=== PATIENT | female | born 1960 | race Caucasian/White ===

== ENCOUNTER 2017-06-09 15:12 | Emergency (ER) | payer OTHER, SELFPAY ==
[2017-06-09 15:22] VITALS: BMI 27.8
[2017-06-09] MEDS ORDERED: Sodium Chloride 0.9% 1,000 ML IV STA (15:24)
--- NOTE | 2017-06-09 15:38 | ED PDOC ---
Arrival/HPI - General Historian: Patient - History of Present Illness Time/Duration: 1 week Context: Home - General Time Seen by Provider: 06/09/17 15:13 - History of Present Illness Narrative History of Present Illness (Text): 06/09/17 15:26 This 57 yo female presents to this ED complaining of dizziness, MCGOWAN x 7 days. Patient stated symptom is intermittent. Dizziness is described as "room spinning". Patient admits mild sore throat, and sinuses congestion. Patient denies fever, trauma, diplopia, dysarthria, shortness of breath, chest pain, abdominal pain, n/v, weakness, paresthesias, or abnormal gait. (Malorie Ovalles) Past Medical History - Provider Review Nursing Documentation Reviewed: Yes - Endocrine/Metabolic Hx Diabetes Mellitus Type 1: Yes - Psychiatric Hx Depression: No Hx Emotional Abuse: No Hx Physical Abuse: No Hx Substance Use: No - Suicidal Assessment Feels Threatened In Home Enviroment: No Family/Social History - Physician Review Nursing Documentation Reviewed: Yes Family/Social History: No Known Family HX Hx Alcohol Use: No Hx Substance Use: No Hx Substance Use Treatment: No Allergies/Home Meds Allergies/Adverse Reactions: Allergies Penicillins Allergy (Verified 06/09/17 15:16) RASH Home Medications: Home Meds Medication Instructions Recorded Confirmed Metformin HCl [Fortamet] 500 mg PO DAILY 06/09/17 06/09/17 Review of Systems - Review of Systems Constitutional: Fatigue. absent: Weight Change, Fevers, Night Sweats Eyes: Normal. absent: Vision Changes, Photophobia, Eye Pain ENT: Sore Throat, Rhinorrhea, Sinus Congestion. absent: Hearing Changes, Tinnitus, TMJ Pain, Voice Changes, Epistaxis Respiratory: Normal. absent: SOB, Cough, Sputum, Wheezing Cardiovascular: Normal. absent: Chest Pain, Palpitations Gastrointestinal: Normal. absent: Abdominal Pain, Nausea, Vomiting Genitourinary Female: Normal. absent: Dysuria, Frequency, Hematuria Musculoskeletal: Normal. absent: Arthralgias, Back Pain, Neck Pain, Myalgias Skin: Normal. absent: Rash Neurological: Headache, Dizziness. absent: Focal Weakness, Gait Changes, Speech Changes, Facial Droop, Disequilibrium, Seizure Endocrine: Normal Hemo/Lymphatic: Normal Psychiatric: Normal Physical Exam Temperature: Afebrile Blood Pressure: Normal Pulse: Regular Respiratory Rate: Normal Appearance: Positive for: Well-Appearing, Non-Toxic, Comfortable Pain Distress: None Mental Status: Positive for: Alert and Oriented X 3 - Systems Exam Head: Present: Atraumatic, Normocephalic Pupils: Present: PERRL Extroacular Muscles: Present: EOMI Conjunctiva: Present: Normal Mouth: Present: Moist Mucous Membranes Neck: Present: Normal Range of Motion Respiratory/Chest: Present: Clear to Auscultation, Good Air Exchange. No: Respiratory Distress, Accessory Muscle Use Cardiovascular: Present: Regular Rate and Rhythm, Normal S1, S2. No: Murmurs Abdomen: Present: Normal Bowel Sounds. No: Tenderness, Distention, Peritoneal Signs Back: Present: Normal Inspection Upper Extremity: Present: Normal Inspection. No: Cyanosis, Edema Lower Extremity: Present: Normal Inspection. No: Edema Neurological: Present: GCS=15, CN II-XII Intact, Speech Normal, Motor Func Grossly Intact, Normal Sensory Function, Normal Cerebellar Funct, Gait Normal, Memory Normal Skin: Present: Warm, Dry, Normal Color. No: Rashes Psychiatric: Present: Alert, Oriented x 3, Normal Insight, Normal Concentration Vital Signs Temp Pulse Resp BP Pulse Ox 06/09/17 15:30 98.7 F 78 18 117/73 99 Medical Decision Making Re-evaluation Time: 17:45 Reassessment Condition: Re-examined, Improved - Lab Interpretations I have reviewed the lab results: Yes Interpretation: No clinic. lab abnormalty - EKG Interpretation Interpreted by ED Physician: Yes (NSR @ 77bpm. Normal interval.) Type: 12 lead EKG Comparison: No previous EKG avail. ED Course and Treatment: I was available for consultation during PA evaluation. The chart was reviewed by me, and I agree with disposition. The documented history was done by the physician cocktail server. The documented physical exam was done by the physician cocktail server. The documented procedures were done by the physician cocktail server. (Rob Darby) 06/09/17 17:44 Patient denies urinary symptoms, and she does not want to have urine test performed 06/09/17 17:45 Patient came c/o dizziness described as room spinning. Patient had a mild MCGOWAN. Patient had blood test, ct head, and medical treatment for vertigo, an MCGOWAN. Patient felt better with treatment, and she wishes to be discharge home. (Malorie Ovalles) - Lab Interpretations Lab Results: 06/09/17 16:03 06/09/17 16:03 Lab Results 06/09/17 16:03: Sodium 140, Potassium 4.1, Chloride 104, Carbon Dioxide 26, Anion Gap 14, BUN 21, Creatinine 0.7, Est GFR ( Amer) > 60, Est GFR (Non- Af Amer) > 60, Random Glucose 84, Calcium 9.3, Total Bilirubin 0.3, AST 23, ALT 29, Alkaline Phosphatase 72, Total Protein 7.2, Albumin 4.3, Globulin 2.9, Albumin/Globulin Ratio 1.5 06/09/17 16:03: WBC 5.6, RBC 4.40, Hgb 12.8, Hct 38.7, MCV 88.0, MCH 29.1, MCHC 33.1, RDW 13.5, Plt Count 213, MPV 12.0 H, Gran % 57.4, Lymph % (Auto) 33.9, Wells % (Auto) 6.3 H, Eos % (Auto) 2.0, Baso % (Auto) 0.4, Gran # 3.19, Lymph # 1.9, Wells # 0.4, Eos # 0.1, Baso # 0.02 - RAD Interpretation Narrative RAD Interpretations (Text): 06/09/17 17:38 ccession No. : [id number] Patient Name / ID : PRATIK YOUNG / [id number] Exam Date : 06/09/2017 16:35:26 ( Approved ) Study Comment : Sex / Age : F / 57Y Creator : Vinicius Maldonado MD Dictator : Vinicius Maldonado MD Operations And Maintenance Specialist : Data Analysis Assistant : Vinicius Maldonado MD Approver2 : Report Date : 06/09/2017 17:24:21 My Comment : PROCEDURE: CT HEAD WITHOUT CONTRAST. HISTORY: dizziness, MCGOWAN COMPARISON: None available. TECHNIQUE: Axial computed tomography images were obtained through the head/brain without intravenous contrast. Radiation dose: Total exam DLP = 774.23 mGy-cm. This CT exam was performed using one or more of the following dose reduction techniques: Automated exposure control, adjustment of the mA and/or kV according to patient size, and/or use of iterative reconstruction technique. FINDINGS: HEMORRHAGE: No intracranial hemorrhage. BRAIN: No mass effect or edema. No atrophy or chronic microvascular ischemic changes. VENTRICLES: Unremarkable. No hydrocephalus. CALVARIUM: Unremarkable. PARANASAL SINUSES: Unremarkable as visualized. No significant inflammatory changes. MASTOID AIR CELLS: Unremarkable as visualized. No inflammatory changes. OTHER FINDINGS: None. IMPRESSION: No acute intracranial abnormalities. No significant findings to account for the clinical presentation. (Malorie Ovalles) Radiology Orders: 06/09/17 15:27 HEAD W/O CONTRAST [CT] Stat - Medication Orders Current Medication Orders: Discontinued Medications Sodium Chloride (Sodium Chloride 0.9%) 1,000 mls @ 999 mls/hr IV .Q1H1M STA Stop: 06/09/17 16:24 Last Admin: 06/09/17 16:01 Dose: 999 mls/hr Meclizine HCl (Antivert) 50 mg PO STAT STA Stop: 06/09/17 15:25 Last Admin: 06/09/17 15:55 Dose: 50 mg Metoclopramide HCl (Reglan) 10 mg IVP STAT STA Stop: 06/09/17 15:25 Last Admin: 06/09/17 15:55 Dose: 10 mg Disposition/Present on Arrival - Present on Arrival Any Indicators Present on Arrival: No History of DVT/PE: No History of Uncontrolled Diabetes: No Urinary Catheter: No History Surgical Site Infection Following: None - Disposition Have Diagnosis and Disposition been Completed?: Yes Disposition Time: 17:48 Patient Plan: Discharge - Disposition Diagnosis: Benign paroxysmal positional vertigo, Headache Disposition: HOME/ ROUTINE Patient Problems: Current Active Problems Problem Status Onset Benign paroxysmal positional vertigo Acute Headache Acute Condition: GOOD Discharge Instructions (ExitCare): Benign Paroxysmal Positional Vertigo (ED), General Headache (ED) Additional Instructions: Call private doctor for follow up visit in 1-2 days. Also call ear nose and throat doctor for revaluation of vertigo, and sinus congestion. Return to emergency if symptoms worsen. Prescriptions: Meclizine [Meclizine*] 25 mg PO Q6 PRN #30 tab PRN Reason: Dizziness Referrals: PCP,BEBA [Primary Care Provider] - Follow up with primary Eugenio Hanley DO [Staff Provider] - Follow up with primary [facility] [Outside] - Follow up with primary [facility] [Outside] - Follow up with primary
[2017-06-09 15:42] VITALS: BP 117/73; PULSE 78; RESP 18; TEMP 98.7; O2SAT 99
[2017-06-09 16:20] LABS: BASO # 0.02 K/mm3 (0.0-2.0); BASO % 0.4 % (0.0-3.0); EOS # 0.1 (0.0-0.7); GRAN # 3.19 (1.4-6.5); GRAN % 57.4 % (50.0-68.0); HEMOGLOBIN 12.8 gm/dL (12.0-16.0); LYMPH # 1.9 (1.2-3.4); LYMPH % 33.9 % (22.0-35.0); MEAN CORPUSCULAR HEMOGLOBIN 29.1 pg (25.0-35.0); MEAN CORPUSCULAR HGB CONC 33.1 g/dl (31.0-37.0); MONO # 0.4 (0.1-0.6); MONO % 6.3 % (1.0-6.0); PLATELET COUNT 213 10^3/uL (120.0-450.0); RED CELL DISTRIBUTION WIDTH 13.5 % (11.5-14.5); WHITE BLOOD COUNT 5.6 10^3/ul (4.5-11.0)
[2017-06-09 16:49] LABS: ALB/GLOB RATIO 1.5 (1.1-1.8); ALBUMIN 4.3 g/dL (3.0-4.8); ALT/SGPT 29 U/L (7-56); AST/SGOT 23 U/L (15-39); BLOOD UREA NITROGEN 21 mg/dL (7-21); CALCIUM 9.3 mg/dL (8.4-10.5); GFR AFRICAN-AMERICAN > 60; GFR NON-AFRICAN AMERICAN > 60
--- NOTE | 2017-06-09 17:26 | CT ---
PROCEDURE: CT HEAD WITHOUT CONTRAST. HISTORY: dizziness, MCGOWAN COMPARISON: None available. TECHNIQUE: Axial computed tomography images were obtained through the head/brain without intravenous contrast. Radiation dose: Total exam DLP = 774.23 mGy-cm. This CT exam was performed using one or more of the following dose reduction techniques: Automated exposure control, adjustment of the mA and/or kV according to patient size, and/or use of iterative reconstruction technique. FINDINGS: HEMORRHAGE: No intracranial hemorrhage. BRAIN: No mass effect or edema. No atrophy or chronic microvascular ischemic changes. VENTRICLES: Unremarkable. No hydrocephalus. CALVARIUM: Unremarkable. PARANASAL SINUSES: Unremarkable as visualized. No significant inflammatory changes. MASTOID AIR CELLS: Unremarkable as visualized. No inflammatory changes. OTHER FINDINGS: None. IMPRESSION: No acute intracranial abnormalities. No significant findings to account for the clinical presentation.
--- NOTE | 2017-06-10 12:46 | CARD ---
APPROVED REPORT EKG Measurement Heart [id number] <Conclusion> Normal sinus rhythm Normal ECG
== END 2017-06-09 17:48 | disposition home or self-care (01) ==
LOC: ED 15:12
DX: H81.10 Benign paroxysmal vertigo, unspecified ear (principal); R51 Headache
CPT/HCPCS: 70450; 80053; 85025; 93005; 96374; 99283; J2765; J7040

== ENCOUNTER 2017-08-09 14:49 | Emergency (ER) | payer OTHER ==
[2017-08-09 14:49] VITALS: BMI 27.8
[2017-08-09 15:07] VITALS: TEMP 98.2; O2SAT 99
--- NOTE | 2017-08-09 15:22 | ED PDOC ---
Arrival/HPI - General Chief Complaint: Abnormal Skin Integrity Time Seen by Provider: 08/09/17 15:13 Historian: Patient - History of Present Illness Narrative History of Present Illness (Text): 08/09/17 15:28 57 yo F presents with a red itchy painless rash to the mid upper chest which started this AM. Denies fever, chills, CP, SOB, new medications, new food, change in creams/lotions/shampoo. Patient states that she started applying hydrocortisone this AM. MONTSE Malik Past Medical History - Provider Review Nursing Documentation Reviewed: Yes - Infectious Disease Hx of Infectious Diseases: None - Cardiac Hx Cardiac Disorders: No - Pulmonary Hx Respiratory Disorders: No - Neurological Hx Neurological Disorder: No - HEENT Hx HEENT Disorder: No - Renal Hx Renal Disorder: No - Endocrine/Metabolic Hx Endocrine Disorders: Yes Hx Diabetes Mellitus Type 2: Yes - Psychiatric Hx Depression: No Hx Emotional Abuse: No Hx Physical Abuse: No Hx Substance Use: No - Surgical History Hx Section: Yes (x2) - Suicidal Assessment Feels Threatened In Home Enviroment: No Family/Social History - Physician Review Nursing Documentation Reviewed: Yes Family/Social History: No Known Family HX Smoking Status: Never Smoked Hx Alcohol Use: No Hx Substance Use: No Hx Substance Use Treatment: No Allergies/Home Meds Allergies/Adverse Reactions: Allergies Penicillins Allergy (Verified 08/09/17 15:07) RASH Home Medications: Home Meds Medication Instructions Recorded Confirmed Metformin HCl [Fortamet] 500 mg PO DAILY 06/09/17 08/09/17 Review of Systems - Review of Systems Constitutional: Normal. absent: Fatigue, Weight Change, Fevers Respiratory: Normal. absent: SOB, Cough, Sputum Cardiovascular: Normal. absent: Chest Pain, Palpitations, Edema Musculoskeletal: Normal. absent: Arthralgias, Back Pain, Neck Pain Skin: Normal, Rash. absent: Pruritis, Skin Lesions Physical Exam - Physical Exam Narrative Physical Exam (Text): 08/09/17 15:32 GENERAL APPEARANCE: Patient is awake, alert, oriented x 3, in no acute distress. SKIN: (+) 3 erythematous raised round lesions in the mid upper chest. Otherwise (-) excoriations, (-) drainage, (-) crusting of lesions is present. HENT: (-) conjunctival injection, (-) chemosis. Oropharynx: clear (-) tongue or lip swelling, (-) tonsillar exudates, (-) erythema. Airway: patent (-) stridor, (-) hoarseness. Mucous membranes moist. Nares: Patent (-) rhinorrhea. NECK: (-) lymphadenopathy, (-) tenderness. CARDIOVASCULAR: Normal rate and rhythm. (-) murmur, (-) gallop. CHEST: (-) rales, (-) wheezing, (-) dyspnea, (-) stridor. Breath sounds equal bilaterally. ABDOMEN: Soft. (-) tenderness, (-) distention, (-) HSM. NEURO: Mental status: Patient is alert, oriented, and with normal strength and tone. Vital Signs Temp Pulse Resp BP Pulse Ox 08/09/17 15:05 98.2 F 72 16 102/63 99 Medical Decision Making ED Course and Treatment: 08/09/17 15:34 57 yo F presents with a red itchy painless rash to the mid upper chest which started this AM. Based on history and exam, likely contact dermatitis. Patient advised to continue hydrocortisone. Advised to follow up with primary care physician in 1-2 days without fail. Advised to take medication as prescribed. Return to the emergency room at any time for any new or worsening symptoms. Patient states she fully agrees with and understands discharge instructions. States that she agrees with the plan and disposition. Verbalized and repeated discharge instructions and plan. I have given the patient opportunity to ask any additional questions. - PA / CORPORATE EVENTS DIRECTOR / Resident Statement MD/DO has reviewed & agrees with the documentation as recorded. Disposition/Present on Arrival - Present on Arrival Any Indicators Present on Arrival: No History of DVT/PE: No History of Uncontrolled Diabetes: No Urinary Catheter: No History of Decub. Ulcer: No History Surgical Site Infection Following: None - Disposition Have Diagnosis and Disposition been Completed?: Yes Diagnosis: Contact dermatitis Disposition: HOME/ ROUTINE Disposition Time: 15:15 Patient Plan: Discharge Patient Problems: Current Active Problems Problem Status Onset Contact dermatitis Acute Condition: STABLE Discharge Instructions (ExitCare): Contact Dermatitis (ED) Print Language: THAI Additional Instructions: Thank you for letting us take care of you today. You were treated for contact dermatitis. The emergency medical care you received today was directed at your acute symptoms. Continue hydrocortisone. If you were prescribed any medication, please fill it and take as directed. It may take several days for your symptoms to resolve. Return to the Emergency Department if your symptoms worsen, do not improve, or if you have any other problems. Please contact your doctor in 2 days for re-evaluation and follow up / or call one of the physicians/clinics you have been referred to that are listed on the Patient Visit Information form that is included in your discharge packet. Bring any paperwork you were given at discharge with you along with any medications you are taking to your follow up visit. Our treatment cannot replace ongoing medical care by a primary care provider (PCP) outside of the emergency department. Thank you for allowing the [facility] team to be part of your care today. Prescriptions: Cetirizine HCl [Zyrtec] 10 mg PO DAILY #20 tab.rapdis Referrals: Tana Malik MD [Primary Care Provider] - Follow up with primary Forms: Tailored (Italian), WORK NOTE
[2017-08-09 16:00] VITALS: BP 108/70; PULSE 68; RESP 17
== END 2017-08-09 15:25 | disposition home or self-care (01) ==
LOC: ED 14:49
DX: L25.9 Unspecified contact dermatitis, unspecified cause (principal)

== ENCOUNTER 2018-11-03 17:05 | Emergency (ER) | payer OTHER ==
[2018-11-03 18:58] VITALS: BMI 26.6
[2018-11-03 19:17] VITALS: BP 123/67; PULSE 89; TEMP 99.8
[2018-11-03] MEDS ORDERED: Sodium Chloride 0.9% 1,000 ML IV STA (19:59)
[2018-11-03 20:24] LABS: BASO # 0.01 K/mm3 (0.0-2.0); BASO % 0.2 % (0.0-3.0); EOS % 0.6 % (1.5-5.0); GRAN # 3.55 (1.4-6.5); GRAN % 69.1 % (50.0-68.0); HEMOGLOBIN 13.5 g/dL (12.0-16.0); LYMPH # 1.2 (1.2-3.4); LYMPH % 24.1 % (22.0-35.0); MEAN CELL VOLUME 87.7 fl (80.0-105.0); MEAN CORPUSCULAR HGB CONC 33.1 g/dl (31.0-37.0); MEAN PLATELET VOLUME 11.7 fl (7.0-11.0); MONO # 0.3 (0.1-0.6); RBC 4.65 10^6/uL (3.5-6.1); RED CELL DISTRIBUTION WIDTH 13.1 % (11.5-14.5); WHITE BLOOD COUNT 5.1 10^3/uL (4.5-11.0)
[2018-11-03 20:26] LABS: ALB/GLOB RATIO 1.4 (1.1-1.8); ALBUMIN 4.5 g/dL (3.0-4.8); ALT/SGPT 33 U/L (7-56); AMYLASE 60 U/L (35-125); AST/SGOT 33 U/L (14-36); BLOOD UREA NITROGEN 14 mg/dL (7-21); GFR NON-AFRICAN AMERICAN > 60; LIPASE 56 U/L (23-300)
[2018-11-03 20:31] LABS: INR 1.21; PARTIAL THROMBOPLASTIN TIME 28.4 Seconds (25.1-36.5); PROTHROMBIN TIME 13.9 SECONDS (9.4-12.5)
[2018-11-03 20:43] LABS: TROPONIN I < 0.01 ng/mL
[2018-11-03 21:48] LABS: URINE APPEARANCE CLEAR (CLEAR); URINE BILIRUBIN NEGATIVE (NEGATIVE); URINE BLOOD NEGATIVE (NEGATIVE); URINE COLOR YELLOW (YELLOW); URINE GLUCOSE (UA) NEGATIVE (NEGATIVE); URINE LEUKOCYTE ESTERASE SMALL Leu/uL (NEGATIVE); URINE PROTEIN NEGATIVE mg/dL (<30 mg/dL); URINE UROBILINOGEN 0.2 E.U./dL (<1 E.U./dL)
[2018-11-03 21:55] LABS: URINE BACTERIA NEG (NEG); URINE RBC NEGATIVE /hpf (0-2); URINE WBC 0 - 2 /hpf (0-6)
--- NOTE | 2018-11-03 22:22 | ED PDOC ---
Arrival/HPI - General Chief Complaint: Abdominal Pain Time Seen by Provider: 11/03/18 19:45 Historian: Patient - History of Present Illness Narrative History of Present Illness (Text): 11/03/18 22:19 58 year old female, whose past medical history includes diabetes, presents to the emergency department with abdominal pain, since yesterday. Patient states she also vomited yesterday with associated pain abdominal pain. Patient informs pain is localized to epigastric region. Patient denies any fevers, chills, headache, dizziness, chest pain, shortness of breath, cough, diarrhea, back pain, neck pain, or any other complaint. Time/Duration: Prior to Arrival Context: Home Past Medical History - Provider Review Nursing Documentation Reviewed: Yes - Infectious Disease Hx of Infectious Diseases: None - Cardiac Hx Cardiac Disorders: No - Pulmonary Hx Respiratory Disorders: No - Neurological Hx Neurological Disorder: No - HEENT Hx HEENT Disorder: No - Renal Hx Renal Disorder: No - Endocrine/Metabolic Hx Endocrine Disorders: Yes Hx Diabetes Mellitus Type 2: Yes - Psychiatric Hx Depression: No Hx Emotional Abuse: No Hx Physical Abuse: No Hx Substance Use: No - Surgical History Hx Section: Yes (x2) - Suicidal Assessment Feels Threatened In Home Enviroment: No Family/Social History - Physician Review Nursing Documentation Reviewed: Yes Family/Social History: No Known Family HX Smoking Status: Never Smoked Hx Alcohol Use: No Hx Substance Use: No Hx Substance Use Treatment: No Allergies/Home Meds Allergies/Adverse Reactions: Allergies Penicillins Allergy (Verified 08/09/17 15:07) RASH Home Medications: Home Meds Medication Instructions Recorded Confirmed Metformin HCl [Fortamet] 500 mg PO DAILY 06/09/17 08/09/17 Review of Systems - Physician Review All systems were reviewed & negative as marked: Yes - Review of Systems Constitutional: absent: Fevers, Night Sweats Respiratory: absent: SOB, Cough Cardiovascular: absent: Chest Pain Gastrointestinal: Abdominal Pain, Vomiting (yesterday). absent: Diarrhea Musculoskeletal: absent: Back Pain, Neck Pain Neurological: absent: Headache, Dizziness Physical Exam Vital Signs Reviewed: Yes Vital Signs Temp Pulse Resp BP Pulse Ox 11/03/18 19:16 99.8 F H 89 16 123/67 96 Temperature: Febrile Blood Pressure: Normal Pulse: Regular Respiratory Rate: Normal Appearance: Positive for: Well-Appearing, Non-Toxic, Comfortable Pain Distress: None Mental Status: Positive for: Alert and Oriented X 3 - Systems Exam Head: Present: Atraumatic, Normocephalic Pupils: Present: PERRL Extroacular Muscles: Present: EOMI Conjunctiva: Present: Normal Mouth: Present: Moist Mucous Membranes Neck: Present: Normal Range of Motion Respiratory/Chest: Present: Clear to Auscultation, Good Air Exchange. No: Respiratory Distress, Accessory Muscle Use Cardiovascular: Present: Regular Rate and Rhythm, Normal S1, S2. No: Murmurs Abdomen: No: Tenderness, Distention, Peritoneal Signs Back: Present: Normal Inspection Upper Extremity: Present: Normal Inspection. No: Cyanosis, Edema Lower Extremity: Present: Normal Inspection. No: Edema Neurological: Present: Speech Normal Skin: Present: Warm, Dry, Normal Color. No: Rashes Psychiatric: Present: Alert, Oriented x 3, Normal Insight, Normal Concentration Medical Decision Making ED Course and Treatment: 11/03/18 22:24 Impression: 58 year old female presents with abdominal pain. Plan: -- EKG -- Pepcid -- Protonix -- Zofran -- Labs -- Reassess and disposition Prior Visits: Notes and results from previous visits were reviewed. Progress Notes: - Lab Interpretations Lab Results: 11/03/18 19:55 11/03/18 19:55 Lab Results 11/03/18 21:30: Urine Color Yellow, Urine Appearance Clear, Urine pH 6.0, Ur Specific [place] 1.015, Urine Protein Negative, Urine Glucose (UA) Negative, Urine Ketones 15 H, Urine Blood Negative, Urine Nitrate Negative, Urine Bilirubin Negative, Urine Urobilinogen 0.2, Ur Leukocyte Esterase Small H, Urine RBC Negative, Urine WBC 0 - 2, Ur Epithelial Cells None, Urine Bacteria Neg 11/03/18 19:55: Sodium 141, Potassium 4.1, Chloride 104, Carbon Dioxide 27, Anion Gap 14, BUN 14, Creatinine 0.7, Est GFR ( Amer) > 60, Est GFR (Non- Af Amer) > 60, Random Glucose 106, Calcium 9.0, Total Bilirubin 0.4, AST 33, ALT 33, Alkaline Phosphatase 67, Lactate Dehydrogenase 410, Total Creatine Kinase 45, Troponin I < 0.01, Total Protein 7.7, Albumin 4.5, Globulin 3.2, Albumin/Globulin Ratio 1.4, Amylase 60, Lipase 56 12/04/18 19:55: PT 13.9 H, INR 1.21, APTT 28.4 11/03/18 19:55: WBC 5.1, RBC 4.65, Hgb 13.5, Hct 40.8, MCV 87.7, MCH 29.0, MCHC 33.1, RDW 13.1, Plt Count 198, MPV 11.7 H, Gran % 69.1 H, Lymph % (Auto) 24.1, [place] % (Auto) 6.0, Eos % (Auto) 0.6 L, Baso % (Auto) 0.2, Gran # 3.55, Lymph # (Auto) 1.2, [place] # (Auto) 0.3, Eos # (Auto) 0.0, Baso # (Auto) 0.01 - EKG Interpretation EKG Interpretation (Text): 11/03/18 22:36 nsr rate 81 nssts changes - Medication Orders Current Medication Orders: Sodium Chloride (Sodium Chloride 0.9%) 1,000 mls @ 100 mls/hr IV .Q10H STA Stop: 11/04/18 05:58 Last Admin: 11/03/18 20:26 Dose: 100 mls/hr eMAR Start Stop Document 11/03/18 20:26 IT (Rec: 11/03/18 20:26 IT [id number]) Intravenous Solution Start Date 11/03/18 Start Time 20:26 Discontinued Medications Famotidine (Pepcid) 20 mg IVP STAT STA Stop: 11/03/18 20:00 Last Admin: 11/03/18 20:25 Dose: 20 mg IVP Administration Document 11/03/18 20:25 IT (Rec: 11/03/18 20:26 IT [id number]) Charges for Administration # of IVP Administrations 1 Ondansetron HCl (Zofran Inj) 4 mg IVP STAT STA Stop: 11/03/18 20:00 Last Admin: 11/03/18 20:26 Dose: 4 mg IVP Administration Document 11/03/18 20:26 IT (Rec: 11/03/18 20:26 IT [id number]) Charges for Administration # of IVP Administrations 1 Pantoprazole Sodium (Protonix Inj) 40 mg IVP ONCE STA Stop: 11/03/18 20:28 Last Admin: 11/03/18 20:53 Dose: 40 mg IVP Administration Document 11/03/18 20:53 IT (Rec: 11/03/18 20:53 IT [id number]) Charges for Administration # of IVP Administrations 1 - Scribe Statement The provider has reviewed the documentation as recorded by the Michaelibe Hasmukh Masterson Provider Scribe Attestation: All medical record entries made by the Scribe were at my direction and personally dictated by me. I have reviewed the chart and agree that the record accurately reflects my personal performance of the history, physical exam, medical decision making, and the department course for this patient. I have also personally directed, reviewed, and agree with the discharge instructions and disposition. Disposition/Present on Arrival - Present on Arrival History of DVT/PE: No History of Uncontrolled Diabetes: No Urinary Catheter: No History of Decub. Ulcer: No History Surgical Site Infection Following: None - Disposition Diagnosis: Gastritis Disposition: HOME/ ROUTINE Patient Problems: Current Active Problems Problem Status Onset Gastritis Acute Discharge Instructions (ExitCare): Gastritis Prescriptions: Pantoprazole Sodium [Protonix] 40 mg PO DAILY #14 ect Forms: [employer] (Kazakh)
[2018-11-03 23:08] VITALS: RESP 18; O2SAT 98
--- NOTE | 2018-11-04 10:13 | CARD ---
APPROVED REPORT Date of service: 11/03/2018 EKG Measurement Heart [id number] ID [id number] <Conclusion> Normal sinus rhythm Possible Left atrial enlargement Borderline ECG
== END 2018-11-03 23:07 | disposition home or self-care (01) ==
LOC: ED 17:05
DX: K29.70 Gastritis, unspecified, without bleeding (principal); E11.9 Type 2 diabetes mellitus without complications
CPT/HCPCS: 80053; 81001; 82150; 82550; 83615; 83690; 84484; 85025; 85610; 85730; 87086; 93005; 96374; 96375; 99282; C9113; J2405; J7030

== ENCOUNTER 2019-03-20 18:36 | Emergency (ER) | payer OTHER ==
[2019-03-20 18:39] VITALS: BMI 28.3
[2019-03-20 18:43] VITALS: BP 114/77; PULSE 76; RESP 18; TEMP 98.5; O2SAT 96
--- NOTE | 2019-03-20 19:02 | ED PDOC ---
Arrival/HPI - General Chief Complaint: Female Genitourinary Time Seen by Provider: 03/20/19 18:48 Historian: Patient - History of Present Illness Narrative History of Present Illness (Text): 03/20/19 18:58 59 y/o female with PMH of DM presents to the ED c/o urinary frequency and dysuria x 1 day. Associated mild lower back pain, increased flatulence, and suprapubic pain only when urinating. States this feels like urinary tract infections she has had in the past. Denies fever, chills, nausea, vomiting, dizziness, vaginal bleeding, vaginal discharge, or any other associated symptoms. Past Medical History - Provider Review Nursing Documentation Reviewed: Yes - Infectious Disease Hx of Infectious Diseases: None - Reproductive Menopause: Yes - Cardiac Hx Cardiac Disorders: No - Pulmonary Hx Respiratory Disorders: No - Neurological Hx Neurological Disorder: No - HEENT Hx HEENT Disorder: No - Renal Hx Renal Disorder: No - Endocrine/Metabolic Hx Endocrine Disorders: Yes Hx Diabetes Mellitus Type 2: Yes - Psychiatric Hx Substance Use: No - Surgical History Hx Section: Yes (x2) - Suicidal Assessment Feels Threatened In Home Enviroment: No Family/Social History - Physician Review Nursing Documentation Reviewed: Yes Family/Social History: No Known Family HX Smoking Status: Never Smoked Hx Alcohol Use: No Hx Substance Use: No Hx Substance Use Treatment: No Allergies/Home Meds Allergies/Adverse Reactions: Allergies Penicillins Allergy (Verified 08/09/17 15:07) RASH Home Medications: Home Meds Medication Instructions Recorded Confirmed Metformin HCl [Fortamet] 500 mg PO DAILY 06/09/17 08/09/17 Review of Systems - Review of Systems Constitutional: Normal. absent: Fevers Eyes: Normal ENT: Normal Respiratory: Normal Cardiovascular: Normal Gastrointestinal: Normal. absent: Abdominal Pain, Nausea, Vomiting Genitourinary Female: Dysuria, Frequency. absent: Hematuria, Urine Output Changes, Vaginal Bleeding, Vaginal Discharge Musculoskeletal: Back Pain Skin: Normal. absent: Rash Neurological: Normal. absent: Headache, Dizziness Physical Exam Vital Signs Reviewed: Yes Vital Signs Temp Pulse Resp BP Pulse Ox 03/20/19 18:36 98.5 F 76 18 114/77 96 Temperature: Afebrile Blood Pressure: Normal Pulse: Regular Respiratory Rate: Normal Appearance: Positive for: Well-Appearing, Non-Toxic, Comfortable Pain Distress: None Mental Status: Positive for: Alert and Oriented X 3 - Systems Exam Head: Present: Atraumatic, Normocephalic Pupils: Present: PERRL Extroacular Muscles: Present: EOMI Conjunctiva: Present: Normal Mouth: Present: Moist Mucous Membranes Neck: Present: Normal Range of Motion. No: Meningeal Signs Respiratory/Chest: Present: Clear to Auscultation, Good Air Exchange. No: Respiratory Distress, Accessory Muscle Use Cardiovascular: Present: Regular Rate and Rhythm, Normal S1, S2, Peripheal Pulses Present Abdomen: Present: Normal Bowel Sounds. No: Tenderness, Distention, Peritoneal Signs, Rebound, Guarding Back: Present: Normal Inspection. No: CVA Tenderness Upper Extremity: Present: Normal Inspection, Normal ROM, NORMAL PULSES, Neurovascularly Intact, Capillary Refill < 2s. No: Cyanosis, Edema, Temperature Abnormalties Lower Extremity: Present: Normal Inspection, NORMAL PULSES, Normal ROM, Neurovascularly Intact, Capillary Refill < 2 s. No: Edema, Temperature Abnormalties Neurological: Present: GCS=15, CN II-XII Intact, Speech Normal, Motor Func Grossly Intact, Normal Sensory Function, Gait Normal Skin: Present: Warm, Dry, Normal Color. No: Rashes Psychiatric: Present: Alert, Oriented x 3, Normal Insight, Normal Concentration, Normal Affect, Normal Mood Medical Decision Making ED Course and Treatment: 03/20/19 19:02 Initial Plan: * UA On initial exam, patient is very well appearing. Abdomen soft and nontender. No CVA tenderness. No vaginal symptoms, nausea, vomiting, severe back pain, fever. Symptoms similar to prior UTIs. 19:32 UA shows trace leuk esterase. Will treat as symptomatic UTI, pending culture. Pt allergic to penicillin, will treat with macrobid. Diagnostic testing results and plan of care discussed with patient. Strict instructions given regarding prescription use, importance of followup, and signs/symptoms to return to ER including or any other new/worsening symptoms. Pt verbalized understanding of discussion. Patient is A&Ox3, ambluating with steady gait, with vital signs stable for discharge. - Lab Interpretations Lab Results: Lab Results 03/20/19 18:50: Urine Color Yellow, Urine Appearance Clear, Urine pH 7.5, Ur Specific Ava <= 1.005, Urine Protein Negative, Urine Glucose (UA) Negative, Urine Ketones Negative, Urine Blood Negative, Urine Nitrate Negative, Urine Bilirubin Negative, Urine Urobilinogen 0.2, Ur Leukocyte Esterase Trace H, Urine RBC Pending, Urine WBC Pending I have reviewed the lab results: Yes Disposition/Present on Arrival - Present on Arrival Any Indicators Present on Arrival: No History of DVT/PE: No History of Uncontrolled Diabetes: No Urinary Catheter: No History of Decub. Ulcer: No History Surgical Site Infection Following: None - Disposition Have Diagnosis and Disposition been Completed?: Yes Diagnosis: UTI (urinary tract infection) Disposition: HOME/ ROUTINE Disposition Time: 19:24 Patient Plan: Discharge Condition: STABLE Discharge Instructions (ExitCare): Urinary Tract Infections in Adults Additional Instructions: Macrobid every 12 hours for 7 days Increase fluids Followup with primary doctor within 2 days Return to ER with any new/worsening symptoms Prescriptions: Nitrofurantoin Macrocrystals [Macrobid] 100 mg PO Q12 #13 cap Referrals: Paige Mccrary MD [Medical Doctor] - [place] up [place] [facility] [place] [facility] [place] - Follow up with primary Forms: [facility] (Malay), WORK NOTE
[2019-03-20 19:07] LABS: PH,URINE 7.5 (4.7-8.0); URINE BILIRUBIN NEGATIVE (NEGATIVE); URINE BLOOD NEGATIVE (NEGATIVE); URINE GLUCOSE (UA) NEGATIVE (NEGATIVE); URINE LEUKOCYTE ESTERASE TRACE Leu/uL (NEGATIVE); URINE PROTEIN NEGATIVE mg/dL (<30 mg/dL); URINE UROBILINOGEN 0.2 E.U./dL (<1 E.U./dL)
[2019-03-20 19:15] LABS: URINE APPEARANCE CLEAR (CLEAR); URINE COLOR YELLOW (YELLOW)
[2019-03-20 19:23] LABS: URINE BACTERIA FEW /hpf; URINE RBC 0 - 2 /hpf (0-2)
== END 2019-03-20 20:08 | disposition home or self-care (01) ==
LOC: ED 18:36
DX: N39.0 Urinary tract infection, site not specified (principal); E11.9 Type 2 diabetes mellitus without complications